=== PATIENT | female | born 1990 | race Two or more races ===

== ENCOUNTER 2024-04-21 04:45 | Observation (INO) | payer MEDICAID, SELFPAY ==
[2024-04-21] VITALS (171 sets, daily range): BP systolic 109–127; BP diastolic 64–72; PULSE 70–107; RESP 16–99; TEMP 36.3–36.9; O2SAT 93–100; BMI 38.8
--- NOTE | 2024-04-21 05:48 | XR_ITS ---
Examination: Complete OB ultrasound greater than 14 weeks Date and time of exam: April 21, 2024 0733 hrs. Indications: Onset nausea vomiting acute pelvic pain back pain beginning 2:00 AM this morning Findings: Viable intrauterine single fetus with single amniotic sac presentation cephalic Cardiac motion 127 BPM Placenta posterior grade 3 Amniotic fluid index 10.5 cm spine maternal right Cervix 5.2 cm Ovaries obscured by the uterus. Composite estimated gestational age based on BPD, head circumference, abdominal circumference, femur length is 34 weeks 6 days Estimated weight 2471.6 g. Survey of intracranial anatomy, spinal anatomy, abdominal anatomy, four-chamber heart performed with no abnormalities identified. Impression: Viable intrauterine gestation cephalic presentation.
--- NOTE | 2024-04-21 05:54 | PD.LDANTE ---
Documentation for date of: 04/21/24 OB Labor/Induct. HPI History of Present Illness : 4 Term pregnancies: 1 pregnancies: 1 Living children: 3 History of Abortions: Spontaneous and Elective: 0 History of sections: No History of : No History of present illness: 33 yo at 34+4 presents with abdominal pain, contractions, nausea and vomiting. c/b: 1) History of PTL spontaneous at 36 weeks 2) BMI 38 3) Increased risk of HDP on aspirin 4) History of appendectomy 5) Cholelithiasis in Patient reports having contractions today that were frequent and intolerable associated with nausea and vomiting. No LOF or VB. No PEC symptoms. No fevers, chills, infectious symptoms or sick contacts. No history of UTI. Per patient, no other complications in this History of Present Adequate Care: Yes Abnormal ultrasound findings: BSUS: cephalic, normal DVP Labs Narrative: GBS unknown Labs Review of Systems Review of Systems Narrative Review of Systems: Negative except noted above Past Medical History Surgical History SURGICAL: Negative Section OTHER SURGICAL HX: appendectomy Meds Home Medications and Allergies Home Medications ?Medication ?Instructions ?Recorded ?Confirmed ?Type aspirin 81 mg tablet,delayed 81 mg PO QDAY 02/15/24 02/15/24 History release Allergies Allergy/AdvReac Type Severity Reaction Status Date / Time No Known Allergies Allergy Verified 02/15/24 19:19 OB Exam Physical Exam Vital signs: Pulse BP Pulse Ox 82 118/72 100 04/21/24 05:04 04/21/24 05:04 04/21/24 05:53 Narrative: GEN: Mild distress with contractons RESP normal work of breathing ABD: gravid, non tender BACK: mild right CVA tenderness, but also noted tenderness in central low back EXT no calf swelling FHT: reactive, no decels [place]: irregular Detailed Labor and Delivery Exam Comments: SVE: 1cm/thick/high OB Assessment & Plan Assessment and Plan (1) Calculus of gallbladder without cholecystitis without obstruction: Status: Acute (2) Obesity (BMI 30-39.9): Status: Acute (3) contractions: Status: Acute (4) Prior labor in third trimester, antepartum: Status: Acute (5) History of appendectomy: Status: Acute Additional Plan Additional Plan Comment: contractions vs labor - history of PTB at 36 week (baby admitted to NICU for hyperbilirubinemia) - Admit to OBS for monitoring and expectant management - abx for GBS unknown, status - collect GBS, urine culture/UA, GC/CT, routine PTL labs - cephalic, order formal US for EFW - notify pediatrics - discussed ALPS and offered BMTZ, no contraindications Cholelithiasis in - RUQ US, although pain is more consistent with contracts than cholelithiasis - CMP ordered BMI 38 Hx of appendectomy FWB: Continous monitoring for status, cephalic, EFW pending MWB: BP normal NPO for now, reassess pending clinical status PPX: none PPH: med for BMI
--- NOTE | 2024-04-21 06:07 | XR_ITS ---
Examination: Abdomen sonogram, Limited Date and time of exam: April 21, 2024 0720 hrs. Indications: Back pain upper abdominal pain beginning 4:00 AM this morning Technique: Real-time santiago scale transabdominal sonographic images of the upper abdomen obtained. Findings: Gallstones. Gallbladder wall 0.3 cm no edema Common bile duct 1.0 cm no definite stones Pancreatic head 3.2 cm Liver 15.5 cm smooth contour no focal liver lesions Normal hepatopedal portal venous flow Patent IVC Impression: Cholelithiasis, negative for cholecystitis Abnormal enlargement common bile duct 1.0 cm, consider MRCP follow-up to exclude common bile duct stones
[2024-04-21] MEDS: BETAMET ACET/BETAMET NA PH (Celestone) 6 MG/ML VIAL 12 MG IM (06:20)
[2024-04-21] MEDS: RINGERS LACTATED 1000 ML 1,000 ML 125 ML IV ×3 (06:40→22:49)
[2024-04-21] MEDS: Ampicillin Inj 2,000 MG in SODIUM CHLORIDE 0.9% (P) 100 ML 200 MG IV (06:40)
[2024-04-21 07:57] LABS: Collection Type, Urine Clean Catch
[2024-04-21 08:03] LABS: Basophils % (Auto) 0 % (0-2.5); Eosinophils # (Auto) 0.1 Thou/mm3 (0.0-0.5); Eosinophils % (Auto) 1 % (0-10); Hematocrit 34.7 % (36.0-46.0); Hemoglobin 11.4 g/dL (12.0-16.0); Immature Granulocytes % (Auto) 1 % (0-0); Immature Granulocytes Auto 0.05 Thou/mm3 (0.00-0.00); Lymphocytes # (Auto) 1.9 Thou/mm3 (1.0-4.8); Lymphocytes % (Auto) 19 % (10-50); Mean Corpuscular HGB Conc 32.9 g/dl (31.0-37.0); Mean Corpuscular Hemoglobin 28.9 pg (25.0-35.0); Mean Corpuscular Volume 88 fL (80-100); Monocytes # (Auto) 0.6 Thou/mm3 (0.0-0.8); Monocytes % (Auto) 6 % (0-12); Neutrophils # (Auto) 7.3 Thou/mm3 (1.8-7.7); Neutrophils % (Auto) 73 % (37-80); Nucleated Red Blood Cell % 0 /100 WBC (0); Platelet Count 231 Thou/mm3 (140-440); RDW Standard Deviation 44.4 fL (36.4-46.3); Red Blood Count 3.94 Miln/mm3 (4.00-5.20); White Blood Count 9.9 Thou/mm3 (3.6-11.0)
[2024-04-21 08:23] LABS: Alanine Aminotransferase 42 U/L (10-49); Albumin, Serum 4.1 gm/dL (3.5-5.0); Albumin/Globulin Ratio 1.6 (1.2-2.2); Alkaline Phosphatase 190 U/L (46-116); Anion Gap 14 (7-16); Aspartate Amino Transferase 37 U/L (0-34); BUN/Creatinine Ratio 10 Ratio (12-20); Bilirubin,Total 0.7 mg/dL (0.3-1.2); Blood Urea Nitrogen 6 mg/dL (9-23); Calcium 8.8 mg/dL (8.3-10.6); Calcium (Corrected) 8.8 mg/dL (8.5-10.1); Carbon Dioxide 19.7 mMol/L (20.0-31.0); Chloride 107 mMol/L (98-107); Creatinine (Component) 0.6 mg/dL (0.6-1.3); Estimated Creatinine Clearance 136.3 mL/min (>60); Globulin 2.5 gm/dL (2.3-3.5); Glucose 111 mg/dL (74-106); Osmolality,Calculated 279 (275-295); Potassium 3.1 mMol/L (3.4-5.1); Sodium 141 mMol/L (136-145); Total Protein 6.6 gm/dL (5.7-8.2); eGFR > 60 See Note
[2024-04-21 08:41] LABS: Syphilis Nonreactive (Nonreactive)
[2024-04-21 08:57] LABS: Bacteria,Urine Rare; Bilirubin,Urine Negative (Negative); Blood,Urine Negative (Negative); Clarity,Urine Turbid (Clear/Hazy); Color,Urine Yellow (Lt Yel-Yel); Glucose, Urine Trace (Negative); Ketones,Urine Trace (Negative); Leukocyte Esterase,Urine Positive (Negative); Nitrite,Urine Negative (Negative); PH,Urine 6.5 (5.0-7.0); Protein,Urine 1+ (Neg - Trace); RBC,Urine 1 /hpf (0-3); Specific Gravity,Urine 1.019 (1.001-1.035); Squamous Epithelial Cell,Urine 14 /hpf (0-5); WBC,Urine 15 /hpf (0-5)
[2024-04-21 10:20] LABS: Chlamydia trachomatis PCR Negative (Not Detect); Neisseria Gonorrhoeae DNA PCR Negative (Not Detect); Trichomonas Negative (Negative)
[2024-04-21] MEDS: Ampicillin Inj 1,000 MG in SODIUM CHLORIDE 0.9% (P) 50 ML 50 MG IV ×4 (10:40→22:40)
[2024-04-21] MEDS: TERBUTALINE SULF INJ 1 MG/ML VIAL 0.25 MG SC (11:49)
[2024-04-21 15:57] LABS: Amphetamine/Metham Scrn,Ur OB Negative (Negative); Benzoylecgonine Screen, Ur OB Negative (Negative); Opiate Screen,Urine OB Negative (Negative); THC Screen,Urine OB Negative (Negative)
[2024-04-22] VITALS (79 sets, daily range): BP systolic 121; BP diastolic 64; PULSE 61–99; RESP 16; TEMP 36.9; O2SAT 90–100
[2024-04-22] MEDS: Ampicillin Inj 1,000 MG in SODIUM CHLORIDE 0.9% (P) 50 ML 50 MG IV (02:50)
--- NOTE | 2024-04-22 04:08 | PD.LDPN ---
Documentation for date of: 04/22/24 OB Labor Progress Note Pain Control Comments: 33 yo at 34+5 presents with contractions c/f labor. HD2 No acute events overnight. No VB, LOF. No contractions or pelvic pressure this AM. Assessment and Plan Comments: 33 yo at 34+5 presents with contractions c/f labor. HD2 contractions, now with no cervical dilation and no signs of advancing labor. - history of PTB at 36 week (baby admitted to NICU for hyperbilirubinemia) - s/p BMZ x2 for ALPS - d/c ampicillin - no signs of continuing cervical dilation, stable for home discharge with strict return precautions Cholelithiasis in - asymptomatic BMI 38 Hx of appendectomy FWB: Category 1, mod reactivity, + accels MWB: BP normal
[2024-04-22] MEDS: BETAMET ACET/BETAMET NA PH (Celestone) 6 MG/ML VIAL 12 MG IM (06:25)
--- NOTE | 2024-04-22 06:45 | PD.LDDS ---
DS: Providers Provider Date of admission: 04/21/24 05:36 Primary care physician: Physician No Primary/Family Admitting Provider: Polly Suarez MD Attending Provider on Admission: Polly Suarez MD Attending Provider on DC: Polly Suarez MD Discharging Provider: Polly Suarez MD DS: Diagnosis Problem List Completed Was Problem List Reviewed/Reconciled?: Yes Summary/Hosp Course Brief History: 33 yo at 34+4 presents with abdominal pain, contractions, nausea and vomiting. c/b: 1) History of PTL spontaneous at 36 weeks 2) BMI 38 3) Increased risk of HDP on aspirin 4) History of appendectomy 5) Cholelithiasis in [place] was admitted for concern for contractions and labor. She was started on ampicillin for GBS prophylaxis, BMZ for ALPS, and continuous monitoring. PTL labs were negative for infection. She was given IVF. She stayed at 1cm of serial exams and her contractions stopped by HD2. She was discharged home in stable condition with OB follow-up. Status at Discharge Overall status at discharge: patient is back to baseline Time Spent with Patient Time attestation: Total time spent providing and/or coordinating discharge services: Exam Vital Signs Temp Pulse Resp BP Pulse Ox 98.5 F 78 16 121/64 98 04/22/24 02:51 04/22/24 02:51 04/22/24 02:51 04/22/24 02:51 04/22/24 06:32 Narrative Exam GEN: NAD RESP normal work of breathing ABD: gravid, non tender SVE: 1cm Discharge Plan Plan Patient Disposition: HOME (Self Care) Patient condition on transfer: Stable Prescriptions/Referrals Prescriptions/Med Rec: No Action aspirin 81 mg Tablet,Delayed Release (Dr/Ec) 81 mg PO QDAY omeprazole 40 mg capsule,delayed release(DR/EC) 40 mg PO QDAY 30 Days Qty: 30 1RF Referrals: No Primary/Family,Physician [Primary Care Provider] - Patient/Caregiver Discharge Instructions Discharge Activity: resume usual activities Print Language: Grenadian Stand Alone Forms: Stephanie Award Info., Patient Portal Info Letter Discharge Order Discharge Orders: Discharge (Routine); Ordered 04/22/24 Ordered By: Polly Suarez Planned Discharge Date 04/22/24
== END 2024-04-22 07:08 | disposition home or self-care (01) ==
PROVIDERS: Admitting Provider Obstetrics & Gynecology; Visit Provider Student in an Organized Health Care Education/Training Program
DX: O60.00 Preterm labor without delivery, unspecified trimester (principal); E66.9 Obesity, unspecified; K80.20 Calculus of gallbladder without cholecystitis without obstruction; O99.619 Diseases of the digestive system complicating pregnancy, unspecified trimester; Z3A.36 36 weeks gestation of pregnancy
CPT/HCPCS: 36415; 59899; 76705; 76805; 80053; 80307; 81001; 85025; 86780; 86850; 86900; 86901; 87081; 87086; 87340; 87491; 87591; 87661; 96361; 96365; 96366; 96372; G0378; J0290; J0702; J3105; J7050; J7120

== ENCOUNTER 2024-04-29 11:50 | Inpatient (IN) | payer MEDICAID, SELFPAY ==
[2024-04-29] VITALS (14 sets, daily range): BP systolic 105–129; BP diastolic 60–76; PULSE 82–150; RESP 16–19; TEMP 36.4–36.8; O2SAT 97–99; BMI 37.2; BMI 35.4
[2024-04-29 12:34] LABS: ROM Kit Lot # 57809118; ROM Swab Mixed By: GARCN1; Rupture of Fetal Membranes Positive (Negative); Swb Mxed in Solvent 1 min? Yes
--- NOTE | 2024-04-29 13:59 | XR_ITS ---
Examination: Complete OB ultrasound greater than 14 weeks Date and time of exam: April 29, 2024 1422 hours INDICATIONS: Diagnosis nausea vomiting acute pelvic pain back pain beginning April 21, 2024, diagnosis labor Findings: Viable intrauterine single fetus with single amniotic sac presentation cephalic Cardiac motion 147 BPM Placenta posterior grade 2 Umbilical cord insertion seen Amniotic fluid index 17 cm Moderate right mild left hydronephrosis. Composite estimated gestational age based on BPD, head circumference, abdominal circumference, femur length is 36 weeks 1 day Estimated weight 3016 g. Survey of intracranial anatomy, spinal anatomy, , four-chamber heart performed with no abnormalities identified. Impression: Viable intrauterine gestation 36 weeks 1 day Moderate right mild left hydronephrosis
--- NOTE | 2024-04-29 14:07 | ESHP_ITS ---
Documentation for date of: 04/29/24 OB Labor/Induct. HPI History of Present Illness Chief complaint: srom, early labor : 4 Para: 3 Term pregnancies: 3 pregnancies: 1 Living children: 2 History of Abortions: Spontaneous and Elective: 0 History of Vaginal deliveries: 3 History of sections: No History of : No Date of last menstrual period: 08/23/23 DEVIN: 05/29/24 Gestational Age (weeks): 35 Gestational Age (days): 5 Gestational age based on last menstrual period: 35 History of present illness: 33-year-old 4 para 3 admit to labor and delivery complaining of leaking since 6 in the morning. Last period August 23, 2023. EDC 219 22,025. First ultrasound at 21 weeks was not called January and this confirmed dates and then she had a 33-week ultrasound that also confirm dates. Denies social habits. Denies surgery. Denies chronic illness. Patient is O+, antibody screen negative, RPR nonreactive, rubella immune, hepatitis B-,, hep C negative, HIV negative, patient is negative for GC and chlamydia. There is no GBS. She had a negative NIPT and carrier screens. Drug screen. Negative. Patient has a history of GDM she just did her third trimester labs so she is unaware that that 1 hour was abnormal. History of Present Adequate Care: Yes Review of Systems Review of Systems Systems Reviewed: All systems reviewed, normal except as documented Past Medical History Surgical History SURGICAL: Negative Section Meds Home Medications and Allergies Home Medications ?Medication ?Instructions ?Recorded ?Confirmed ?Type aspirin 81 mg tablet,delayed 81 mg PO QDAY 02/15/24 02/15/24 History release vit no.133-ferrous tab PO 04/29/24 History fumarate 28 mg-folic acid 800 mcg tablet () Allergies Allergy/AdvReac Type Severity Reaction Status Date / Time No Known Allergies Allergy Verified 02/15/24 19:19 OB Exam Physical Exam Vital signs: Temp Pulse Resp BP 97.6 F 98 18 116/71 04/29/24 12:35 04/29/24 12:35 04/29/24 12:35 04/29/24 12:35 Narrative: Normal heart rate and rhythm. Lungs clear no wheezes. Gravid abdomen. Gynecoid pelvis. Estimated weight 6 pounds 8. Vaginal exam on admission was long 1 and high. Leaking clear fluid. Irregular contractions. heart rate category 1 with accelerations and moderate variability Detailed Labor and Delivery Exam Dilation (cm): 1 Effacement (%): 50 Cervix position: posterior station: -4 Consistency: medium Presentation: Vertex Cervical ripeness score: 4 Membranes: ruptured Amniotic fluid: clear Baseline heart rate: 145 monitor accelerations: 15x15 monitor decelerations: None keno terminal operator variability: Moderate (11-25) Contraction frequency (min): irreg Contraction duration (sec): mild Contraction intensity: Mild OB Results Impressions Impression: labor, ruptured membranes OB Assessment & Plan Assessment and Plan (1) Normal labor and delivery: Status: Acute Additional Plan Induction method: per misoprostol protocol Plan: augmentation, anticipate NVD, GBS prophylaxis tx and consult MD guillaume
[2024-04-29 16:22] LABS: Basophils % (Auto) 0 % (0-2.5); Eosinophils # (Auto) 0.1 Thou/mm3 (0.0-0.5); Eosinophils % (Auto) 1 % (0-10); Hematocrit 34.6 % (36.0-46.0); Hemoglobin 11.2 g/dL (12.0-16.0); Immature Granulocytes % (Auto) 1 % (0-0); Immature Granulocytes Auto 0.11 Thou/mm3 (0.00-0.00); Lymphocytes # (Auto) 2.7 Thou/mm3 (1.0-4.8); Lymphocytes % (Auto) 24 % (10-50); Mean Corpuscular HGB Conc 32.4 g/dl (31.0-37.0); Mean Corpuscular Hemoglobin 28.9 pg (25.0-35.0); Mean Corpuscular Volume 89 fL (80-100); Monocytes % (Auto) 8 % (0-12); Neutrophils # (Auto) 7.6 Thou/mm3 (1.8-7.7); Neutrophils % (Auto) 66 % (37-80); Nucleated Red Blood Cell % 0 /100 WBC (0); Platelet Count 288 Thou/mm3 (140-440); RDW Standard Deviation 44.3 fL (36.4-46.3); Red Blood Count 3.87 Miln/mm3 (4.00-5.20); White Blood Count 11.5 Thou/mm3 (3.6-11.0)
[2024-04-29] MEDS: MISOPROSTOL 50 mCg TABLET PO (16:37)
[2024-04-29] MEDS: Ampicillin Inj 2,000 MG in SODIUM CHLORIDE 0.9% (P) 100 ML 200 MG IV (16:37)
[2024-04-29 16:58] LABS: Syphilis Nonreactive (Nonreactive)
[2024-04-29 17:53] LABS: Amphetamine/Metham Scrn,Ur OB Negative (Negative); Benzoylecgonine Screen, Ur OB Negative (Negative); Opiate Screen,Urine OB Negative (Negative); THC Screen,Urine OB Negative (Negative)
[2024-04-29] MEDS: Ampicillin Inj 1,000 MG in SODIUM CHLORIDE 0.9% (P) 50 ML 50 MG IV (21:07)
[2024-04-29] MEDS: RINGERS LACTATED 1000 ML 1,000 ML 125 ML IV (21:07)
[2024-04-29] MEDS: AZITHROMYCIN 250 MG TABLET 1000 MG PO (22:01)
[2024-04-29] MEDS: ceFAZolin/D5W 2 GM IV 2 GM/100 ML BAG IV (22:04)
[2024-04-29] MEDS: CITRIC ACID/SODIUM CITR 15 ML UDC (BICITRA) 30 ML PO (22:04)
[2024-04-29] MEDS: FAMOTIDINE INJ 10 MG/ML VIAL 2 ML 20 MG IV (22:04)
--- NOTE | 2024-04-29 22:24 | PD.LDPN ---
Documentation for date of: 04/29/24 OB Labor Progress Note Pelvic Exam Dilation (cm): 3 Effacement (%): 50 station: -4 Amniotic membrane status: Ruptured Contractions Contraction frequency: irreg Contraction intensity: Mild Assessment and Plan Comments: This is a patient being induced for premature rupture of membranes. Patient has been on continuous heart monitoring. Was given Cytotec p.o. for induction. On review of heart tracing variability has been minimal for more than 1 hour in spite of all resuscitative measures including IV bolus position changes. IUPC did not show any evidence of tachysystole responsible for the minimal variability. Given small variables noted in the tracing amnioinfusion was also started however variability has not returned back to moderate. Patient is still in latent phase of labor I had a discussion with the patient and her at the bedside and was offered as a safe route of delivery given category 2 heart tone Patient was also given an option of continuing with labor management Azithromycin 1 g to be given Surgical prophylaxis to be started Boarded for primary low-transverse in 30 minutes
[2024-04-29] MEDS: KETOROLAC INJ 30 MG/ML VIAL IVP (23:33)
[2024-04-29] MEDS: ACETAMINOPHEN IVPB 1,000 MG/100 ML VIAL 250 MG IV (23:34)
[2024-04-29] MEDS: OXYTOCIN in NS 20 units 20 UNIT/1,000 ML BAG 125 UNIT IV (23:34)
[2024-04-30] VITALS (13 sets, daily range): BP systolic 102–133; BP diastolic 63–82; PULSE 70–83; RESP 14–21; TEMP 36.5–37; O2SAT 95–99
[2024-04-30] MEDS: ONDANSETRON INJ 2 MG/ML INJ 2 ML 4 MG IV (00:38)
--- NOTE | 2024-04-30 04:51 | PC.NURSE ---
At 2247, delivered a female via section, good cry, tone and respiratory effort at delivery, no oxygen supplement needed, no significant distress, initial spo2 at 3 minutes of life above NRP guideline, NB care done and assessment completed, banded and shown to parents, brought to NICU for admission per Dr Negrete.
[2024-04-30 06:07] LABS: Basophils % (Auto) 0 % (0-2.5); Eosinophils # (Auto) 0.1 Thou/mm3 (0.0-0.5); Eosinophils % (Auto) 0 % (0-10); Hematocrit 30.6 % (36.0-46.0); Hemoglobin 10.1 g/dL (12.0-16.0); Immature Granulocytes % (Auto) 1 % (0-0); Immature Granulocytes Auto 0.09 Thou/mm3 (0.00-0.00); Lymphocytes # (Auto) 2.6 Thou/mm3 (1.0-4.8); Lymphocytes % (Auto) 16 % (10-50); Mean Corpuscular Hemoglobin 29.1 pg (25.0-35.0); Mean Corpuscular Volume 88 fL (80-100); Monocytes # (Auto) 1.1 Thou/mm3 (0.0-0.8); Monocytes % (Auto) 7 % (0-12); Neutrophils # (Auto) 12.2 Thou/mm3 (1.8-7.7); Neutrophils % (Auto) 76 % (37-80); Nucleated Red Blood Cell % 0 /100 WBC (0); Platelet Count 245 Thou/mm3 (140-440); RDW Standard Deviation 43.3 fL (36.4-46.3); Red Blood Count 3.47 Miln/mm3 (4.00-5.20); White Blood Count 16.2 Thou/mm3 (3.6-11.0)
[2024-04-30] MEDS: KETOROLAC INJ 30 MG/ML VIAL IVP (07:34)
[2024-04-30] MEDS: OXYTOCIN in NS 20 units 20 UNIT/1,000 ML BAG 125 UNIT IV (07:37)
--- NOTE | 2024-04-30 13:00 | OBDSUM_ITS ---
Data ([facility]) Data Hx Section: No : 4 Para: 2 Term: 2 : 1 : 0 Delivery Data ([facility]) Labor Data Stimulated/Augmented: Yes Method: Cytotec ROM Date: 04/29/24 ROM Time: 06:00 Rupture Type: SROM Amniotic Fluid: Clear Delivery Data Labor Onset Stage 1 Date: 04/29/24 Labor Onset Stage 1 Time: 22:47 Labor Onset Stage 2 Date: 04/29/24 Labor Onset Stage 2 Time: 22:47 Delivery Date: 04/29/24 Delivery Time: 22:47 Gestational age (weeks): 35 Gestational age (days): 5 Placenta Delivery Date: 04/29/24 Placenta Delivery Time: 22:48 Delivered by: Apoorva Lee Delivery nurse: Josie Ram Other staff at delivery: Nursery Nurse Other staff at delivery: Nurse Other staff at delivery: Gemma Brown Other staff at delivery: Asmita Rowe Delivery Method Delivery: Delivery Type: Primary Anesthesia Type Primary Anesthesia: Spinal EBL Estimated blood loss (ml): 300 [place] Data ([facility]) [place] Data Gender: Female Infant Weight Grams: 2830 1 Minute Total: 9 5 Minute Total: 9
--- NOTE | 2024-04-30 13:00 | ESOP_ITS ---
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 Identity was confirmed by double identifiers and she was placed on the operating table.The abdomen and perineum were prepped in the usual sterile fashion and a Keys catheter was placed to continuous drainage.? Sterile drapes were applied.??A Pfannenstiel skin incision was made with a scalpel and carried to the subcutaneous fat up to the rectus fascia.? The rectus fascia was incised on either side of the midline and the incisions were extended bilaterally.? The fascia was gently dissected off the ventral surface of the rectus muscle both superiorly and inferiorly. Carefully a peritioneal window craeted hysterotomy incision made and extended bluntly with finger. Rupture of membranes revealed clear fluid. The baby was found in cephalic position delivered via vertex. The umbilical cord , was doubly clamped, divided and the was handed over to the waiting team.? placenta delivered by controlled cord traction . The interior of the uterus was now thorougly cleaned of all blood and debris and membranes.? 2 cavities and the uterus verified the? hysterotomy was closed using 0 vicryl suture in double layers. Once the repair was completed the hysterotomy was inspected, was noted to be adequately hemostatic . Muscle oozing stopped by bovie. The rectus fascia was repaired using Vicry 0 in a running fashion.? The subcutaneous layer was now, approximated with 3-0 vicryl in double layers.? All bleeding points were cauterized using the Bovie.?The skin was closed using 4-0 Monocryl in a subcuticular fashion.? The skin was cleaned and a sterile dressing was applied. The patient was now undraped, the abdomen and back were thoroughly cleaned and she was now transferred to the recovery room in a stable Estimated blood loss (ml): 300 Complications: none Surgical staff Operation Date: 04/29/24 22:21 Case Staff [employer]ULTANTS INTERN: Damien Adam RNstore associate: Alissa Bertrand Diagnosis Problem List Completed Was Problem List Reviewed/Reconciled?: Yes
--- NOTE | 2024-04-30 13:03 | PD.LDPPPRG ---
Subjective Subjective Interval history: Patient is doing well denies any fever, vaginal bleeding. Is ambulating, passing gas, tolerating oral diet without nausea vomiting Exam Vital Signs Temp Pulse Resp BP Pulse Ox O2 Del Method 98.1 F 70 16 103/63 97 Room Air 04/30/24 11:56 04/30/24 11:56 04/30/24 11:56 04/30/24 11:56 04/30/24 11:56 04/30/24 11:56 Constitutional Constitutional: no acute distress Routine HEENT Exam Head: Present normocephalic and atraumatic Eye: Present EOMI and PERRL ENT: Present mucous membranes moist Routine Neck Exam Neck: Present supple and trachea midline Routine Respiratory Exam Respiratory: Present chest non-tender, lungs clear, normal breath sounds and no resp distress Routine Cardiovascular Exam Cardiovascular: Present RRR Routine Abdominal Exam Abdominal: Present soft and normoactive bowel sounds Routine Extremities Exam Extremities: Present full ROM Routine Skin Exam Skin: Present intact, dry and warm Routine Neurological Exam Neurological: Present alert, oriented X3 and CN II-XII intact Routine Psychiatric Exam Psychiatric: Present normal affect and normal thought process Objective Labs 04/30/24 05:00 Labs: Laboratory Results - last 24 hr 04/29/24 04/29/24 04/30/24 13:10 15:30 05:00 WBC 11.5 H 16.2 H D RBC 3.87 L 3.47 L Hgb 11.2 L 10.1 L Hct 34.6 L 30.6 L MCV 89 88 MCH 28.9 29.1 MCHC 32.4 33.0 RDW Std Deviation 44.3 43.3 Plt Count 288 D 245 D Neut % (Auto) 66 76 Lymph % (Auto) 24 16 [place] % (Auto) 8 7 Eos % (Auto) 1 0 Baso % (Auto) 0 0 Neut # (Auto) 7.6 12.2 H Lymph # (Auto) 2.7 2.6 [place] # (Auto) 1.0 H 1.1 H Eos # (Auto) 0.1 0.1 Baso # (Auto) 0.0 0.0 Immature Gran # (Auto) 0.11 H 0.09 H Absolute Nucleated RBC 0.00 0.00 Immature Gran % 1 H 1 H Nucleated RBC % 0 0 Urine Opiates Screen Negative U Amphetamin/Meth Scrn Negative U Cocaine Metab Screen Negative U Marijuana (THC) Screen Negative Syphilis Serology Nonreactive Blood Type O Positive Antibody Screen NEGATIVE Blood Bank Wristband ID Yes Assessment & Plan Problem List (1) Normal labor and delivery: Status: Acute Assessment Comment Assessment comment: 33-year-old status post primary low-transverse for nonresolving category 2 heart tone with resuscitation, postop day 1 Vital signs stable Hemoglobin appropriate drop Meeting all postop milestones Plan Comment Plan Comment: Continue postop care Anticipate discharge tomorrow Time Spent With Patient Time: Total time spent is greater than 50% in coordination of care (as documented) at patient's floor/unit and/or counseling patient:
[2024-04-30] MEDS: IBUPROFEN TAB 400 MG TABLET 800 MG PO (23:55)
[2024-05-01 08:24] VITALS: BP 109/71; PULSE 81; RESP 18; TEMP 36.7; O2SAT 97
--- NOTE | 2024-05-01 09:01 | PD.LDDS ---
DS: Providers Provider Date of admission: 04/29/24 13:06 Primary care physician: Physician No Primary/Family Admitting Provider: Apoorva Lee MD Attending Provider on Admission: Apoorva Lee MD Consults: 04/29/24 22:30 Referral Routine Comment: Attending Provider on DC: Chantel Gonzalez MD Discharging Provider: Chantel Gonzalez MD DS: Diagnosis Discharge Diagnosis (1) Prior labor in third trimester, antepartum: Status: Acute (2) Obesity (BMI 30-39.9): Status: Acute (3) premature rupture of membranes: Status: Acute (4) Non-reassuring heart rate or rhythm affecting management of fetus: Status: Acute (5) Delivery by section: Status: Acute Assessment & Plan: Patient is a 33yo G4 [id number] s/p uncomplicated PLTCS after receiving augmentation for PPROM at 35+ weeks and experiencing a persistent Cat II FHRT, doing well on POD 2. She has had an uneventful post-operative/ course. Vitals wnl, benign exam. Hemodynamically stable with no evidence of infection. Appropriate change in H/H from 11.2 to 10.1. Plan: -Discharge home -Regular diet -Medications prescribed to pharmacy: motrin 800mg PO Q8hr prn pain, norco 5/325mg PO Q6hr prn pain, miralax 17g PO QD to prevent constipation. Discussed with patient how to take medications. -Restrictions: vaginal rest and no heavy lifting greater than 10 pounds for 6 weeks, no driving while taking narcotic, do not submerge incision (keep clean and dry) -Follow up: 1 week appointment with OBGYN for incision check -Return precautions given: fever greater than 100.4F, chills, myalgias, increasing abdominal pain, drainage/redness/swelling of incision, foul smelling vaginal discharge, heavy vaginal bleeding > 1 pad in an hour for 2 hours in a row, redness/pain of breast in the setting of fevers/chills/myalgias, symptoms of depression -Will need glucose testing at 8 weeks since she had an abnormal 1hr glucola with no follow up testing. Problem List Completed Was Problem List Reviewed/Reconciled?: Yes Summary/Hosp Course Brief History: 33-year-old 4 para 3 admit to labor and delivery complaining of leaking since 6 in the morning. Last period August 23, 2023. EDC 219 22,025. First ultrasound at 21 weeks was not called January and this confirmed dates and then she had a 33-week ultrasound that also confirm dates. Denies social habits. Denies surgery. Denies chronic illness. Patient is O+, antibody screen negative, RPR nonreactive, rubella immune, hepatitis B-,, hep C negative, HIV negative, patient is negative for GC and chlamydia. There is no GBS. She had a negative NIPT and carrier screens. Drug screen. Negative. Patient has a history of GDM she just did her third trimester labs so she is unaware that that 1 hour was abnormal. She is s/p uncomplicated PLTCS after receiving augmentation for PPROM at 35+ weeks and experiencing a persistent Cat II FHRT, doing well on POD 2. She has had an uneventful post-operative/ course. Vitals wnl, benign exam. Hemodynamically stable with no evidence of infection. Appropriate change in H/H from 11.2 to 10.1. Peripartum Data Procedures: Procedures Operation Date: 04/29/24 22:21 Actual Procedure Side Surgeon p in OB Apoorva Lee MD Status at Discharge Functional status at discharge: independent ambulation Overall status at discharge: patient is back to baseline Time Spent with Patient Time attestation: Total time spent providing and/or coordinating discharge services: Time spent: Less than 30 minutes Exam Vital Signs Temp Pulse Resp BP Pulse Ox O2 Del Method 98.1 F 81 18 109/71 97 Room Air 05/01/24 08:24 05/01/24 08:24 05/01/24 08:24 05/01/24 08:24 05/01/24 08:24 05/01/24 08:24 Narrative Exam General: well developed, well nourished, no acute distress, conversant Cardiac: normal heart rate Lungs: breathing without distress Abdomen: soft, post-gravid, non-tender, no rebound or guarding, pfannenstiel incision covered by dry/clean/intact prineo bandage. Incision well reapproximated. No erythema, drainage or induration. Extremities: no pain with palpation of calves, trace edema of BLE Discharge Plan Plan Patient Disposition: HOME (Self Care) Patient condition on transfer: Stable Prescriptions/Referrals Prescriptions/Med Rec: New hydrocodone-acetaminophen 5-325 mg Tablet 1 tab PO Q6HR MDD 4 tablets PRN (Reason: Patient rated pain 9 to 10) 10 Days Qty: 20 0RF ibuprofen 400 mg Tablet 800 mg PO Q8H PRN (Reason: See Comments) 10 Days Qty: 30 0RF polyethylene glycol 3350 [ClearLax] 17 gram powder in packet 17 g PO QDAY Qty: 14 0RF Continued 28-800 mg-mcg Tablet PO omeprazole 40 mg capsule,delayed release(DR/EC) 40 mg PO QDAY 30 Days Qty: 30 1RF Discontinued aspirin 81 mg Tablet,Delayed Release (Dr/Ec) 81 mg PO QDAY Referrals: No Primary/Family,Physician [Primary Care Provider] - Patient/Caregiver Discharge Instructions Discharge Activity: activity as tolerated and other Other Discharge Activity Instructions:: Vaginal rest and no heavy lifting more than 10 pounds for 6 weeks, no driving while taking narcotic. Do not submerge incision, keep clean and dry. Other Discharge Diet Instructions: regular diet Education Materials: C Section Dc Print Language: Sinhala Activity Restrictions/Additional Instructions: Do not submerge incision, keep clean and dry. Follow up for incision check in 1 week. Return to hospital for fevers/chills/body aches, foul smelling vaginal discharge, signs of wound infection such as redness, drainage or swelling, heavy vaginal bleeding. Stand Alone Forms: Stephanie Award Info., Patient Portal Info Letter Discharge Order Discharge Orders: Discharge (Routine); Ordered 05/01/24 Ordered By: Chantel Gonzalez Planned Discharge Date 05/01/24 (3) premature rupture of membranes Qualifiers: PROM onset of labor timing: onset of labor within 24 hours of rupture Qualified Code(s): O42.019 - premature rupture of membranes, onset of labor within 24 hours of rupture, unspecified trimester
[2024-05-01 12:08] VITALS: BP 110/68; PULSE 77; RESP 16; TEMP 36.8; O2SAT 98
[2024-05-01] MEDS: HYDROcodone/APAP 5/325 TABLET 2 TAB PO (13:44)
== END 2024-05-01 18:00 | disposition home or self-care (01) | DRG 540 ==
LOC: S4SX 14:41 → S4NX 22:26
PROVIDERS: Admitting Provider Student in an Organized Health Care Education/Training Program; Visit Provider Student in an Organized Health Care Education/Training Program
PROC: 10D00Z1 Extraction of Products of Conception, Low, Open Approach (ICD-10-PCS; CPT 59514; principal; 2024-04-29 21:30)
DX: O42.013 Preterm premature rupture of membranes, onset of labor within 24 hours of rupture, third trimester (principal); O76 Abnormality in fetal heart rate and rhythm complicating labor and delivery; Z3A.35 35 weeks gestation of pregnancy; O99.214 Obesity complicating childbirth; Z37.0 Single live birth; Z86.32 Personal history of gestational diabetes
CPT/HCPCS: 36415; 59025; 76805; 80307; 84112; 85025; 86780; 86850; 86900; 86901; A4649; J0131; J0290; J0689; J1885; J2274; J2371; J2405; J2590; J3490; J7050; J7120; A9270; J2270